=== PATIENT | female | born 1935 | race Caucasian/White ===

== ENCOUNTER 2021-04-08 11:50 | Outpatient (CLI) | payer MEDICARE | END 2021-04-08 11:51 | disposition home or self-care (01) | LOC: CSHMAMMO 11:50 | PROVIDERS: ATTEND Family Medicine | DX: Z12.31 Encounter for screening mammogram for malignant neoplasm of breast (principal); Z80.3 Family history of malignant neoplasm of breast | CPT/HCPCS: 77063; 77067 ==

== ENCOUNTER 2022-07-22 10:09 | Outpatient (CLI) | payer OTHER | END 2022-07-22 10:10 | disposition home or self-care (01) | LOC: CSHMAMMO 10:09 | PROVIDERS: ATTEND Family Medicine | DX: Z12.31 Encounter for screening mammogram for malignant neoplasm of breast (principal); Z80.3 Family history of malignant neoplasm of breast | CPT/HCPCS: 77063; 77067 ==

== ENCOUNTER 2022-11-13 21:21 | Emergency (ER) | payer OTHER ==
[~2022-11-13 21:21] MED LIST: Iopamidol 300 61% 100 ML VIAL FS ONE
[2022-11-13] MEDS ORDERED: Ondansetron PF 4 MG/2 ML Vial ONE (22:07)
[2022-11-13] MEDS ORDERED: Morphine 4 MG/ML VIAL ONE (22:08)
[2022-11-13 22:42] LABS: SARS-CoV-2 NAA Rapid Test Not Detected (NotDetected)
[2022-11-13 22:42] LABS: #Basophils 0.1 10x3/uL (0.0-0.2); #Eosinphils 0.2 10x3/uL (0.0-0.5); #Monocytes 0.8 10x3/uL (0.0-1.1); #Neutrophils 8.2 10x3/uL (1.5-8.4); %Basophils 0.5 % (0.0-2.0); %Eosinophils 1.5 % (0.0-6.0); %Lymphocytes 15.6 % (18.0-47.0); %Monocytes 6.9 % (0.0-10.0); %Neutrophils 75.1 % (40.0-75.0); Hematocrit 38.5 % (34.9-44.5); Hemoglobin 12.8 g/dL (12.0-15.5); Mean Corpuscular HGB CONC 33.2 g/dL (32.0-36.0); Mean Corpuscular Hemoglobin 31.3 pg (27.0-33.0); Mean Corpuscular Volume 94.1 fl (81.6-98.3); Mean Platelet Volume 9.5 fl (7.4-10.4); Platelet Count 252 10x3/uL (150-450); RBC Distribution Width 13.1 % (11.5-14.5); Red Blood Cell (RBC) Count 4.09 10x6/uL (3.90-5.03); White Blood Cell (WBC) Count 10.9 10x3/uL (3.5-10.5)
[2022-11-13 22:54] LABS: ALT (SGPT) 20 U/L (8-55); AST (SGOT) 16 U/L (5-34); Albumin 3.7 g/dL (3.4-4.8); Alkaline Phosphatase 61 U/L (40-110); Anion Gap 13 mmol/L (10-20); BUN (Urea Nitrogen) 13 mg/dL (9.8-20.1); Bilirubin, Total 0.9 mg/dL (0.2-1.2); Calc. Creatinine Clearance 0 mL/min (70-130); Calcium 8.1 mg/dL (7.8-10.44); Carbon Dioxide 22 mmol/L (23-31); Chloride 102 mmol/L (98-107); Estimated GFR 61; Globulin 2.1 g/dL (2.4-3.5); Glucose 120 mg/dL (83-110); Protein, Total 5.8 g/dL (5.8-8.1); Sodium 133 mmol/L (136-145)
[2022-11-13 23:00] LABS: Troponin I Less than 0.010 ng/mL (< 0.028)
[2022-11-13 23:09] LABS: Lipase Less than 4 U/L (8-78)
[2022-11-13 23:29] LABS: Bilirubin Neg (Negative); Blood, Urine Negative (Negative); Clarity Clear (Clear); Glucose, Urine (Dipstick) Normal (Negative); Ketone, Urine Negative (Negative); Leukocyte 100 (Negative); Nitrite Negative (Negative); Protein, Urine (Dipstick) Negative (Neg-Trace); Urobilinogen Normal mg/dL (Less than 2)
[2022-11-13 23:47] LABS: Bacteria/HPF Rare-Few HPF (None Seen); CAUTI Indications for Culture Pelvic or flank pain; RBC/HPF None Seen HPF (0-3); WBC/HPF 0-3 HPF (0-3)
[2022-11-13 23:48] LABS: Urine Culture Reflex No No
[2022-11-14] MEDS ORDERED: Morphine 4 MG/ML VIAL ONE (00:26)
[2022-11-14] MEDS ORDERED: predniSONE 20 MG TAB ONE (00:27)
[2022-11-14] MEDS ORDERED: metroNIDAZOLE 500 MG/100 ML BAG ONE (00:28)
== END 2022-11-14 01:00 | disposition home or self-care (01) ==
LOC: CSHERS 21:21
DX: K57.32 Diverticulitis of large intestine without perforation or abscess without bleeding (principal); K21.9 Gastro-esophageal reflux disease without esophagitis; E78.00 Pure hypercholesterolemia, unspecified; Z20.822 Contact with and (suspected) exposure to COVID-19; Z87.891 Personal history of nicotine dependence; Z79.899 Other long term (current) drug therapy
CPT/HCPCS: 0240U; 71045; 74177; 80053; 81001; 83605; 83690; 84484; 85025; 93005; 96361; 96374; 96375; 96376; J0744; J2270; J2405; J7512; Q9967

== ENCOUNTER 2023-10-19 16:11 | Emergency (ER) | payer OTHER ==
[2023-10-19 17:16] LABS: #Basophils 0.05 10x3/uL (0.0-0.2); #Eosinphils 0.34 10x3/uL (0.0-0.5); #Monocytes 0.58 10x3/uL (0.0-1.1); #Neutrophils 3.68 10x3/uL (1.5-8.4); %Basophils 0.8 % (0.0-2.0); %Eosinophils 5.4 % (0.0-6.0); %Lymphocytes 25.4 % (18.0-47.0); %Monocytes 9.3 % (0.0-10.0); %Neutrophils 58.8 % (40.0-75.0); Hemoglobin 12.1 g/dL (12.0-15.5); Mean Corpuscular HGB CONC 33.6 g/dL (32.0-36.0); Mean Corpuscular Hemoglobin 32.4 pg (27.0-33.0); Mean Corpuscular Volume 96.3 fL (81.6-98.3); Mean Platelet Volume 8.9 fL (7.4-10.4); Platelet Count 244 10x3/uL (150-450); RBC Distribution Width 12.3 % (11.5-14.5); Red Blood Cell (RBC) Count 3.74 10x6/uL (3.90-5.03); White Blood Cell (WBC) Count 6.3 10x3/uL (3.5-10.5)
[2023-10-19] MEDS ORDERED: Ondansetron ODT 4 MG TAB ONE (17:26)
[2023-10-19 17:34] LABS: ALT (SGPT) 14 U/L (8-55); AST (SGOT) 19 U/L (5-34); Albumin 3.4 g/dL (3.4-4.8); Alkaline Phosphatase 60 U/L (40-110); Anion Gap 14 mmol/L (10-20); BUN (Urea Nitrogen) 8 mg/dL (9.8-20.1); Bilirubin, Total 0.5 mg/dL (0.2-1.2); Calc. Creatinine Clearance 0 mL/min (70-130); Calcium 8.8 mg/dL (7.8-10.44); Carbon Dioxide 27 mmol/L (23-31); Chloride 100 mmol/L (98-107); Estimated GFR 62; Globulin 2.4 g/dL (2.4-3.5); Glucose 104 mg/dL (83-110); Potassium 3.8 mmol/L (3.5-5.1); Protein, Total 5.8 g/dL (5.8-8.1); Sodium 137 mmol/L (136-145); Troponin I Less than 0.010 ng/mL (< 0.028)
[2023-10-19 18:15] LABS: SARS-CoV-2 E Target Negative; SARS-CoV-2 N2 Target Negative; SARS-CoV-2 NAA Rapid Test Not Detected (NotDetected); SARS-CoV-2 RdRP gene Negative
[2023-10-19 19:01] LABS: Bilirubin Neg (Negative); Blood, Urine Negative (Negative); Clarity Clear (Clear); Glucose, Urine (Dipstick) Normal (Negative); Ketone, Urine 5 mg/dL (Negative); Leukocyte 100 (Negative); Nitrite Negative (Negative); Protein, Urine (Dipstick) Negative (Neg-Trace); Urobilinogen Normal mg/dL (Less than 2); pH, Urine 6.5 (5.0-9.0)
[2023-10-19 19:18] LABS: CAUTI Indications for Culture Pelvic or flank pain; RBC/HPF 0-3 HPF (0-3)
[2023-10-19 19:19] LABS: Squamous Epithelial 0-3 HPF (0-3)
[2023-10-19 19:20] LABS: Bacteria/HPF 1+ HPF (None Seen)
[2023-10-19 19:21] LABS: Urine Culture Reflex No No
== END 2023-10-19 19:20 | disposition home or self-care (01) ==
LOC: CSHERS 16:11
DX: K59.00 Constipation, unspecified (principal); Z87.891 Personal history of nicotine dependence
CPT/HCPCS: 80053; 81001; 84484; 85025; 93005; Q0162; U0002; 36415

== ENCOUNTER 2023-11-11 10:30 | Outpatient (CLI) | payer OTHER | END 2023-11-11 10:31 | disposition home or self-care (01) | LOC: CSHRAD 10:30 | PROVIDERS: ATTEND Physician Assistant Medical | DX: K59.00 Constipation, unspecified (principal); R13.10 Dysphagia, unspecified; K22.2 Esophageal obstruction; K22.4 Dyskinesia of esophagus | CPT/HCPCS: 74220 ==

== ENCOUNTER 2023-12-15 09:52 | Outpatient (CLI) | payer OTHER | END 2023-12-15 09:53 | disposition home or self-care (01) | LOC: CSHCT 09:52 | PROVIDERS: ATTEND Orthopaedic Surgery | DX: Z01.818 Encounter for other preprocedural examination (principal); M17.12 Unilateral primary osteoarthritis, left knee ==